=== PATIENT | female | born 1950 | race Caucasian/White ===

== ENCOUNTER 2016-05-18 06:40 | Day surgery (SDC) | payer MEDICARE, OTHER ==
[2016-05-18] MEDS ORDERED: Lactated Ringers 1,000 ML IV SCH (06:45)
[2016-05-18] MEDS ORDERED: Propofol 200 MG/20 ML SDV IV ONE (08:00)
[2016-05-18] MEDS ORDERED: Lidocaine 2% 100 MG/5 ML Syringe IVPUSH ONE (08:00)
[2016-05-18] MEDS ORDERED: Midazolam 1 MG/ML 2 ML SDV IV ONE (08:00)
--- NOTE | 2016-05-18 08:27 | PCM.OPNOTE ---
- General Post-Op/Procedure Note Date of Surgery/Procedure: 05/18/16 Operative Procedure(s): egd with biopsy Findings: gastroduodenitis irregular z line Pre Op Diagnosis: anemia Post-Op Diagnosis: gastroduodenitis. irregular z line Anesthesia Technique: MAC Primary Surgeon: Javi Lara Anesthesia Provider: Ramon Jenkins Pathology: stomach duodenum and distal esophagus Complications: None Condition: Good Free Text/Narrative:: see dictation
[2016-05-18 09:01] VITALS: BP 145/87
--- NOTE | 2016-05-18 09:38 | OR ---
DATE OF OPERATION: 05/18/2016 SURGEON: Javi Lara MD PROCEDURE PERFORMED: Esophagogastroduodenoscopy with cold forceps biopsy. PREOPERATIVE DIAGNOSIS: History of anemia. POSTOPERATIVE DIAGNOSIS: Gastroduodenitis and irregular Z-line in the esophagus. INDICATIONS: This is a 66-year-old white female, referred by her medical oncologist. She has a history of chronic anemia, recently had undergone a colonoscopy, was noted to have some hemorrhoids. She does note some hemorrhoidal bleeding; however, an EGD was felt to be indicated due to the possibility of gastropathy secondary to her current chemotherapy treatment, and she was offered and accepted an EGD. DESCRIPTION OF OPERATION: After an excellent IV sedation was administered, a bite block was inserted. The flexible endoscope was passed without difficulty down the patient's esophagus into her stomach. The stomach was insufflated. Scope was passed through the pylorus to the second portion of duodenum and slowly withdrawn. The following findings were noted. The bulb demonstrated some mild inflammation, biopsies were taken. Stomach, punctate hemorrhage was noted throughout and friable mucosa was noted throughout, biopsies were taken. Esophagus, the Z-line was at 40 cm, but noted to be irregular, multiple biopsies were taken. The remainder of our esophageal exam was unremarkable. The stomach was deflated. Scope was removed. The patient tolerated the procedure well and was taken to recovery room in good condition. /[id number] /MODL
== END 2016-05-18 09:26 | disposition home or self-care (01) ==
LOC: FB.SDS 06:40
PROVIDERS: ATTEND Surgery
PROC: 0DB98ZX Excision of Duodenum, Via Natural or Artificial Opening Endoscopic, Diagnostic (ICD-10-PCS; principal; 2016-05-18)
PROC: 0DB68ZX Excision of Stomach, Via Natural or Artificial Opening Endoscopic, Diagnostic (ICD-10-PCS; 2016-05-18)
PROC: 0DB38ZX Excision of Lower Esophagus, Via Natural or Artificial Opening Endoscopic, Diagnostic (ICD-10-PCS; 2016-05-18)
DX: D64.9 Anemia, unspecified (principal); K29.90 Gastroduodenitis, unspecified, without bleeding; K64.1 Second degree hemorrhoids; Z79.899 Other long term (current) drug therapy; Z88.2 Allergy status to sulfonamides; Z88.1 Allergy status to other antibiotic agents; I10 Essential (primary) hypertension
CPT/HCPCS: 00740; 43239; 88305; 88313; 88342; J2250; J2704; J7120